=== PATIENT | male | born 1950 | race Asian ===

== ENCOUNTER 2016-08-16 17:06 | Emergency (ER) | payer OTHER ==
[~2016-08-16] VITALS: Ht 167.6 cm; Wt 63.5 kg
[~2016-08-16 17:06] MED LIST: AMLODIPINE BESY10 MG ORAL; ATORVASTATIN CA40 MG ORAL; BACLOFEN10 MG ORAL; CALCIUM 500 +1 EAC3 PO; DOCUSATE SODIU100 MG ORAL; DULCOLAX10 MG RC; HYDROCHLOROTHIA25 MG ORAL; KEPPRA1000 MG ORAL; LOVENOX10 M4 SUBQ; METOPROLOL TART50 MG ORAL; MIRALAX17 G2 ORAL; MULTIPLE VITAM1 EAC5 PO; NORCO 5-325 TA1 EACH ORAL; POTASSIUM 25 M25 ME1 PO; PROTONIX40 MG ORAL; TAMSULOSIN HCL0.4 MG ORAL; TYLENOL EXTRA500 MG ORAL; VANCOMYCIN1 GM/2502 IVPB
--- NOTE | 2016-08-16 17:11 | Emergency Room Report ---
History of Present Illness General Chief Complaint: Multiple Trauma/Fall Source: Patient, Medical Record, EMS, PMD Present Illness HPI The patient presents after falling out of a wheelchair. He hit his head. They deny any loss of consciousness. The patient was sent for evaluation with a CT scan after this fall. 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 He also states that several years ago he fractured his hip on the right hand side and had surgery for that. He is coming from a correction facility. No headache, neck pain, other extremity pain. L weakness unchanged. No dysuria , NVD. Prior admission 06/06 - 06/12. Dx admission: 1. Hypernatremia. 2. Acute renal failure. 3. Dehydration. 4. Urinary tract infection. 5. The patient is more confused and altered and has baseline. Allergies: Coded Allergies: No Known Allergies (Unverified , 06/06/16) Patient History Past Medical History: see triage record, old chart reviewed, CVA/TIA Social History: Denies: alcohol use, smoking Social History Narrative born in [place] Reviewed Nursing Documentation: PMH: Agreed, PSxH: Agreed Nursing Documentation-PMH Hx Hypertension: Yes Hx Cancer: No Hx Gastrointestinal Problems: Yes - GERD, Hyperlipidemia Hx Cerebrovascular Accident: Yes - Left hemiplegia Review of Systems All Other Systems: negative except mentioned in HPI Physical Exam Vital Signs Date Time Temp Pulse Resp B/P Pulse Ox O2 Delivery O2 Flow Rate FiO2 08/16/16 16:58 60 16 124/65 97 Room Air Sp02 EP Interpretation: reviewed, normal General Appearance: well appearing, no apparent distress Head: normocephalic, atraumatic Eyes: bilateral eye PERRL, bilateral eye normal inspection ENT: hearing grossly normal, normal voice Neck: full range of motion, supple Respiratory: no respiratory distress, speaking full sentences Musculoskeletal: other - Contractures left upper arm Neurologic: motor weakness - Left hemiparesis Psychiatric: mood/affect normal Skin: abrasions - Old Left knee laterally Medical Decision Making Diagnostic Impression: Primary Impression: Head injury Qualified Codes: S09.90XA - Unspecified injury of head, initial encounter Additional Impressions: Fall Qualified Codes: W19.XXXA - Unspecified fall, initial encounter Post stroke ER Course Patient presents post fall from wheelchair. DDx: bleed, fx, contusion. No h/o LOC. Patient with prior stroke. CT indicated. Patient declines pain medicine. Non-syncopal and patient appears well hydrated, not toxic and with prior L weakness. CT with prior R infarct. No bleed. Patient unchanged. Patient stable for outpatient observation and treatment. CT/MRI/US Diagnostic Results CT/MRI/US Diagnostic Results : Imaging Test Ordered: head Impression piror R infarct, no bleed, fx Last Vital Signs Date Time Temp Pulse Resp B/P Pulse Ox O2 Delivery O2 Flow Rate FiO2 08/16/16 19:30 97.6 78 18 112/75 99 Room Air Status: improved Disposition: XFER SNF Condition: Stable Scripts Acetaminophen (Tylenol) 325 Mg Tablet 650 MG ORAL Q6H Y for Prn Pain/Headache/Temp > 101, #30 TAB 0 Refills Prov: Price Cavazos M.D. 08/16/16 Price Cavazos M.D. Aug 16, 2016 17:11
[2016-08-16 17:20] VITALS: BP 120/70
[2016-08-16] MEDS ORDERED: TYLENOL325 MG ORAL (18:03)
[2016-08-16 19:30] VITALS: BP 112/75
--- NOTE | 2016-08-17 10:24 | Diagnostic Imaging Report ---
\H\CT Brain without Intravenous Contrast INDICATION: \N\Pain status post fall.\H\ COMPARISON: \N\None\H\ TECHNIQUE: Serial axial images were obtained from the the skull base through the vertex without intravenous contrast. Coronal reformats were obtained. Dose Estimate: Total DLP \N\1428\H\ mGycm CTDIvol \N\70\H\ mGy FINDINGS: Confluent hypodensity in the right parietal lobe near the vertex may reflect chronic encephalomalacia from prior infarct with associated mild volume loss and ex-vacuo dilatation. There is no evidence of acute intracranial hemorrhage or extra-axial fluid collection. The remaining cortical sulci, ventricles and extra-axial CSF spaces are mildly enlarged in size for patient's age. There is no midline shift. Moderate scattered periventricular and subcortical white matter hypodensities are nonspecific but may reflect changes of chronic microangiopathy. Partially imaged calcification with surrounding mucosal thickening in the right maxillary sinus may represent chronic sinusitis with mucosal inspissation. The remaining visualized paranasal sinuses and mastoid air cells are clear. The osseous structures are unremarkable. \N\\H\IMPRESSION: 1. Probable chronic encephalomalacia from prior infarct with associated volume loss unexpected dilatation involving the right parietal lobe near the vertex. If clinical concern for acute focal infarct persists, MRI may be considered. 2. No acute intracranial hemorrhage or midline shift. 3. Mild cerebral atrophy and probable scattered changes of chronic microangiopathy. 4. Chronic right maxillary sinusitis. \N\
== END 2016-08-16 20:24 ==
LOC: EDBD 17:06 → EMR 17:55
DX: S09.8XXA Other specified injuries of head, initial encounter (principal); S80.212A Abrasion, left knee, initial encounter; S80.211A Abrasion, right knee, initial encounter; W05.0XXA Fall from non-moving wheelchair, initial encounter; Y92.89 Other specified places as the place of occurrence of the external cause; I69.354 Hemiplegia and hemiparesis following cerebral infarction affecting left non-dominant side; E78.5 Hyperlipidemia, unspecified; K21.9 Gastro-esophageal reflux disease without esophagitis; I10 Essential (primary) hypertension; J32.0 Chronic maxillary sinusitis; G31.9 Degenerative disease of nervous system, unspecified
CPT/HCPCS: 70450; 99284